=== PATIENT | female | born 1955 | race Two or more races ===

== ENCOUNTER 2021-01-06 09:14 | Emergency (ER) | payer MEDICARE ==
[~2021-01-06] VITALS: Ht 152.4 cm; Wt 89.7 kg
--- NOTE | 2021-01-06 09:31 | NUR ---
PT AMBULATORY TO ROOM 6 W/ C/O HEMATURIA W/ NICKEL SIZED CLOTS. STATES IT STARTED THIS AM. ALSO C/O DYSURIA. PT STATES HX SAME AND WAS GIVEN ABX AT THAT TIME. PT DENIES LOWER PELVIC/BILAT FLANK PAIN BUT STATES LOWER BACK PAIN YESTERDAY. PT AWARE OF HOW TO URINATE FOR BEST UA SAMPLE. PT VERBALIZES UNDERSTANDING. MARIA TERESA JUNIOR AT BEDSIDE FOR EVAL.
[2021-01-06] MEDS ORDERED: PHENAZOPYRIDINE 200 MG TABLET ONE (09:36)
[2021-01-06 09:58] LABS: MICROSCOPIC INDICATED
[2021-01-06] MEDS ORDERED: PHENAZOPYRIDINE 200 MG TABLET PO ONE (10:00)
[2021-01-06 10:05] LABS: BASOPHILS % (AUTO) 1 % (0-1); EOSINOPHILS % (AUTO) 1 % (1-7); LYMPHOCYTES % (AUTO) 18 % (22-44); MD NO; MEAN CORPUSCULAR HEMOGLOBIN 28.1 pg (27.0-34.8); MEAN CORPUSCULAR HGB CONC 33.2 g/dL (32.4-35.8); MEAN PLATELET VOLUME 8.1 fL (7.4-10.4); MONOCYTES % (AUTO) 6 % (2-9); NEUTROPHILS % (AUTO) 75 % (42-75); PLATELET COUNT 320 x10^3/uL (130-400); RED BLOOD COUNT 4.68 x10^6/uL (3.82-5.3); RED CELL DISTRIBUTION WIDTH 13.3 % (9.6-15.2)
[2021-01-06 10:16] LABS: ALBUMIN 3.9 g/dL (3.4-5.0); ANION GAP 4 mmol/L (5-15); CALCIUM 9.2 mg/dL (8.5-10.1); CHLORIDE 102 mmol/L (98-107)
[2021-01-06 10:17] LABS: CREATININE 0.63 mg/dL (0.55-1.02)
--- NOTE | 2021-01-06 10:38 | NUR ---
PT CHART REVIEWED AND PLACED FOR RECHECK.
--- NOTE | 2021-01-06 10:38 | NUR ---
PT RESTING ON GURNEY. NADN. TURCIOS.
[2021-01-06] MEDS ORDERED: CEFTRIAXONE PMX 1GM/50ML 50 ML ONE (10:54)
[2021-01-06] MEDS ORDERED: CEFTRIAXONE PMX 1GM/50ML 50 ML IV ONE (11:00)
[2021-01-06] MEDS ORDERED: CEFTRIAXONE 1,000 MG IM ONE (11:00)
--- NOTE | 2021-01-06 11:15 | NUR ---
PT RESTING ON GURNEY. NADN. TURCIOS.
[2021-01-06 12:05] VITALS: BP 137/69
--- NOTE | 2021-01-06 12:05 | NUR ---
PT RESTING ON GURNEY. NADN. TURCIOS.
== END 2021-01-06 12:17 | disposition home or self-care (01) ==
LOC: MERGE 09:14 → ED 10:12
DX: N30.01 Acute cystitis with hematuria (principal); R30.0 Dysuria; I10 Essential (primary) hypertension
CPT/HCPCS: 36415; 80048; 81001; 82040; 85025; 87086; 96365; 99285; J0696